=== PATIENT | male | born 1985 | race Caucasian/White ===

== ENCOUNTER 2024-04-18 06:20 | Day surgery (SDC) | payer BC, SELFPAY | END 2024-04-18 12:07 | disposition home or self-care (01) | LOC: GI 06:20 | PROVIDERS: ATTENDING PHYSICIAN Internal Medicine Gastroenterology | DX: Z12.11 Encounter for screening for malignant neoplasm of colon (principal); K64.8 Other hemorrhoids; K57.30 Diverticulosis of large intestine without perforation or abscess without bleeding; D12.0 Benign neoplasm of cecum; D12.5 Benign neoplasm of sigmoid colon; Z83.719 Family history of colon polyps, unspecified | CPT/HCPCS: 45380; 88305 ==